=== PATIENT | female | born 1945 | race Caucasian/White ===

== ENCOUNTER 2021-07-21 10:21 | Emergency (ER) | payer MEDICARE ==
[~2021-07-21] VITALS: Ht 149.9 cm; Wt 61.4 kg
[2021-07-21 10:22] VITALS: BP 124/74
== END 2021-07-21 14:01 | disposition home or self-care (01) ==
LOC: M ED 10:21
DX: M79.661 Pain in right lower leg (principal); M16.11 Unilateral primary osteoarthritis, right hip; E78.5 Hyperlipidemia, unspecified

== ENCOUNTER → 2023-06-29 | Outpatient (REF) | payer MEDICARE ==
[2023-06-29 18:38] LABS: THYROID STIMULATING HORMONE 4.134 uIU/ML (0.55-4.78)
[2023-06-29 18:39] LABS: FREE T4 0.78 NG/DL (0.89-1.76)
== END ==
LOC: M LABDRWAD 17:11
PROVIDERS: ATTEND Physician Assistant Medical
DX: E03.9 Hypothyroidism, unspecified (principal)

== ENCOUNTER → 2023-07-01 | Outpatient (CLI) | payer MEDICARE | LOC: M WHC 13:14 | PROVIDERS: ATTEND Physician Assistant Medical | DX: Z12.31 Encounter for screening mammogram for malignant neoplasm of breast (principal); M81.0 Age-related osteoporosis without current pathological fracture ==

== ENCOUNTER 2023-07-31 08:40 | Day surgery (SDC) | payer MEDICARE ==
[~2023-07-31] VITALS: Ht 149.9 cm; Wt 62.8 kg
[~2023-07-31 08:40] MED LIST: ATOR1TAB19 PO; CALC600C3 PO; LEVO50TA5 PO; THERTAB52 PO; VITA100093 PO
[2023-07-31] MEDS: NS 1,000 ML IV ONE (09:40)
[2023-07-31] MEDS ORDERED: propofoL 500 MG/50 ML VIAL As Ordered ONE (10:41)
[2023-07-31] MEDS ORDERED: LIDOCAINE 2% 100MG/5ML SDV (FOR ANES.) As Ordered ONE (10:41)
[2023-07-31 10:59] VITALS: TEMP 97
[2023-07-31 11:20] VITALS: BP 152/81; O2SAT 95
== END 2023-07-31 11:26 | disposition home or self-care (01) ==
LOC: M OPP 08:40
PROVIDERS: ATTEND Surgery
DX: Z12.11 Encounter for screening for malignant neoplasm of colon (principal); D12.6 Benign neoplasm of colon, unspecified; K64.2 Third degree hemorrhoids; K64.4 Residual hemorrhoidal skin tags; K57.30 Diverticulosis of large intestine without perforation or abscess without bleeding; E03.9 Hypothyroidism, unspecified; E78.2 Mixed hyperlipidemia; Z79.02 Long term (current) use of antithrombotics/antiplatelets; Z79.890 Hormone replacement therapy

== ENCOUNTER → 2023-11-03 | Outpatient (CLI) | payer MEDICARE ==
[~2023-11-03] MED LIST changes: +CALC-175 PO; +PANT40TA29 PO; +PRED20TA PO; +SENN8.6T58 PO; +SUCR1ORA PO
== END ==
LOC: M WUC 13:46
PROVIDERS: ATTEND Physician Assistant
DX: M19.012 Primary osteoarthritis, left shoulder (principal)

== ENCOUNTER 2023-11-10 09:04 | Emergency (ER) | payer MEDICARE ==
[~2023-11-10] VITALS: Ht 147.3 cm; Wt 67.6 kg
[~2023-11-10 09:04] MED LIST changes: -CALC-175 PO; -PANT40TA29 PO; -PRED20TA PO; -SENN8.6T58 PO; -SUCR1ORA PO
[2023-11-10] MEDS ORDERED: PRED20TA PO (09:17)
[2023-11-10 09:41] LABS: BASO % 0.1 % (0.0-1.0); HEMATOCRIT 39.1 % (36.0-47.0); HEMOGLOBIN 13.3 g/dl (12.0-15.5); LYMPH # 1.3 10^3/uL (1.5-5.0); LYMPH % 12.8 % (24.0-44.0); MEAN CORPUSCULAR VOLUME 91.1 fl (80.0-96.0); MONO # 0.7 10^3/uL (0.0-0.8); MONO % 6.7 % (2.0-8.0); NEUTROPHILS # 8.3 10^3/uL (1.5-8.5); PLATELET COUNT, AUTOMATED 257 10^3/uL (150-450); RED BLOOD COUNT 4.29 10^6/uL (4.00-5.40); WHITE BLOOD COUNT 10.5 10^3/uL (4.0-10.0)
[2023-11-10] MEDS ORDERED: NITROGLYCERIN 0.3MG SUBL TAB SL STA (10:01)
[2023-11-10 10:18] LABS: BLOOD UREA NITROGEN 21 MG/DL (9-23); CARBON DIOXIDE LEVEL 27 MMOL/L (20-31); CHLORIDE LEVEL 108 MMOL/L (98-107); CK-MB VALUE MASS < 1.0 NG/ML (<3.6); CREATININE FOR GFR 0.78 MG/DL (0.55-1.30); GLOMERULAR FILTRATION RATE > 60.0 (>39); GLUCOSE, FASTING 124 MG/DL (74-106); SODIUM LEVEL 139 MMOL/L (136-145)
[2023-11-10 10:27] LABS: CPK CREATINE PHOSPHOKINASE 25 U/L (34-145)
[2023-11-10] MEDS: MORPHINE 2 MG/ML 1ML VIAL IV ONE (10:46)
[2023-11-10 10:47] VITALS: BP 169/96
[2023-11-10] MEDS: NITROGLYCERIN 0.4MG SUBL TABLET SL STA (10:47)
[2023-11-10 11:13] LABS: LIPASE 24 U/L (12-53)
[2023-11-10 11:16] LABS: ALBUMIN 3.6 G/DL (3.2-5.2); ALKALINE PHOSPHATASE 72 U/L (46-116); ALT/SGPT 24 U/L (7.0-40); AST/SGOT 12 U/L (<34); BILIRUBIN,DIRECT 0.2 MG/DL (<0.4); BILIRUBIN,TOTAL 0.6 MG/DL (0.3-1.2); TOTAL PROTEIN 6.6 G/DL (5.7-8.2)
[2023-11-10 11:17] LABS: CK-MB VALUE MASS < 1.0 NG/ML (<3.6); CPK CREATINE PHOSPHOKINASE 26 U/L (34-145); MB/CK RELATIVE INDEX 3.84 (< OR =4)
[2023-11-10] MEDS ORDERED: CALC-175 PO (11:50)
[2023-11-10] MEDS ORDERED: ISOVUE-370 76% 100ML VIAL As Ordered ONE (11:54)
[2023-11-10] MEDS ORDERED: HOME MED LIST COMPLETE! XX SCH (11:55)
[2023-11-10] MEDS ORDERED: PANT40TA29 PO (13:59)
[2023-11-10] MEDS ORDERED: SENN8.6T58 PO (13:59)
[2023-11-10] MEDS ORDERED: SUCR1ORA PO (13:59)
[2023-11-10 14:49] VITALS: BP 127/85; TEMP 97.1; O2SAT 98
== END 2023-11-10 14:53 | disposition home or self-care (01) ==
LOC: M ED 09:04
DX: K29.00 Acute gastritis without bleeding (principal); R94.31 Abnormal electrocardiogram [ECG] [EKG]; E78.5 Hyperlipidemia, unspecified; F10.10 Alcohol abuse, uncomplicated; Z79.810 Long term (current) use of selective estrogen receptor modulators (SERMs); Z79.52 Long term (current) use of systemic steroids; Z79.899 Other long term (current) drug therapy
CPT/HCPCS: 36415; 71045; 71275; 74177; 80048; 80076; 82550; 82553; 83690; 84484; 85025; 93005; 93041; 94760; 96374; 99285; Q9967

== ENCOUNTER → 2023-12-25 | Outpatient (REF) | payer MEDICARE ==
[~2023-12-25] MED LIST changes: +CALC-175 PO; +PANT40TA29 PO; +PRED20TA PO; +SENN8.6T58 PO; +SUCR1ORA PO
[2023-12-25 13:38] LABS: HEMOGLOBIN A1c 5.6 % (4.0-6.0)
[2023-12-25 14:14] LABS: ALBUMIN 3.6 G/DL (3.2-5.2); ALKALINE PHOSPHATASE 91 U/L (35-104); ALT/SGPT 18 U/L (7.0-40); AST/SGOT 15 U/L (<34); BILIRUBIN,TOTAL 0.6 MG/DL (0.3-1.2); BLOOD UREA NITROGEN 14 MG/DL (9-23); CARBON DIOXIDE LEVEL 28 MMOL/L (20-31); CHLORIDE LEVEL 109 MMOL/L (98-107); CHOLESTEROL LEVEL 142 MG/DL (<200); CHOLESTEROL RISK RATIO 4.36 (<5); GLOMERULAR FILTRATION RATE > 60.0 (>39); GLUCOSE, FASTING 98 MG/DL (74-106); HDL CHOLESTEROL 32.5 MG/DL (>40); LDL CHOLESTEROL 69.3 MG/DL (<100); NON-HDL-C 109.5 MG/DL; POTASSIUM SERUM 4.1 MMOL/L (3.5-5.1); SODIUM LEVEL 143 MMOL/L (136-145); THYROID STIMULATING HORMONE 7.548 uIU/ML (0.55-4.78); TOTAL PROTEIN 6.8 G/DL (5.7-8.2); TRIGLYCERIDES LEVEL 201 MG/DL (<150)
== END ==
LOC: M LABDRWAD 12:55
PROVIDERS: ATTEND Physician Assistant Medical
DX: R73.03 Prediabetes (principal); E78.5 Hyperlipidemia, unspecified; E03.9 Hypothyroidism, unspecified